=== PATIENT | male | born 1995 | race Caucasian/White ===

== ENCOUNTER 2017-09-26 14:39 | Emergency (ER) | payer MEDICAID ==
[2017-09-26 14:42] VITALS: BP 124/68; PULSE 99; RESP 19; TEMP 98.8; O2SAT 98
--- NOTE | 2017-09-26 15:51 | ED PDOC ---
HPI: CCC, URI, Sore Throat Time Seen by Provider: 09/26/17 14:44 Chief Complaint (Nursing): ENT Problem Chief Complaint (Provider): Vomitting History Per: Patient History/Exam Limitations: no limitations Have you had recent travel within the past 21 days to any of the following countries: [place], [place], [place] or [place]?: No Onset/Duration Of Symptoms: Hrs (x 12) Current Symptoms Are (Timing): Still Present Associated Symptoms: Vomiting Additional Complaint(s): 22 year old male presents to the ED via EMS for evaluation of throat pain and tactile fever since last night. Patient states he has had 5 episodes of non- bloody, non-bilious vomiting since earlier this morning. Patient reports he has pain with swallowing and talking. Patient states he took no medications prior to arrival. Denies cough, sick contacts, abdominal pain, chest pain, recent travel, ear pain, headache, drooling, SOB, and neck pain/stiffness. PMD: None Past Medical History Reviewed: Historical Data, Nursing Documentation, Vital Signs Vital Signs: Last Vital Signs Temp 98.8 F 09/26/17 14:41 Pulse 99 H 09/26/17 14:41 Resp 19 09/26/17 14:41 BP 124/68 09/26/17 14:41 Pulse Ox 98 09/27/17 00:15 - Surgical History Surgical History: No Surg Hx - Family History Family History: States: Unknown Family Hx - Social History Current smoker - smoking cessation education provided: Yes (6 cigarettes per day ) Alcohol: None Drugs: Denies - Home Medications Home Medications: Ambulatory Orders Medication Instructions Recorded Amoxicillin/Clavulanate [Augmentin 1 tab PO BID #20 tab 09/26/17 875 MG-125 MG] Ibuprofen [Motrin Tab] 600 mg PO Q6 #20 tab 09/26/17 Ondansetron ODT [Zofran ODT] 8 mg PO TID PRN #12 odt 09/26/17 - Allergies Allergies/Adverse Reactions: Allergies Allergy/AdvReac Type Severity Reaction Status Date / Time No Known Allergies Allergy Verified 09/26/17 14:40 Review of Systems ROS Statement: Except As Marked, All Systems Reviewed And Found Negative Constitutional: Positive for: Fever ENT: Positive for: Throat Pain Gastrointestinal: Positive for: Vomiting (5 episodes) Physical Exam - Reviewed Nursing Documentation Reviewed: Yes Vital Signs Reviewed: Yes - Physical Exam Comments: GENERAL APPEARANCE: Patient is awake, alert, oriented x 3, in no acute distress. Speaking in full sentences. SKIN: Warm, dry; (-) cyanosis, (-) rash. EYES: (-) conjunctival pallor, (-) scleral icterus, (-) conjunctival hemorrhage. ENMT: Mucous membranes moist. TMs: (-) bulging, (-) erythema. Airway patent: (-) stridor (-) muffled voice (-) drooling. Pharynx: (+) bilateral tonsilar erythema, (+) exudates bilaterally, (+) 3+ hypertrophy; (+) uvula midline. NECK: Supple, FROM (-) tenderness, (-) stiffness, (-) meningismus, (+) anterior cervical lymphadenopathy. CHEST AND RESPIRATORY: (-) accessory muscle use. Lungs: (-) rales, (-) rhonchi, (-) wheezes, (-) rub; breath sounds equal bilaterally. HEART AND CARDIOVASCULAR: (-) irregularity; (-) murmur, (-) gallop, (-) rub. ABDOMEN AND GI: Soft; (-) tenderness, (-) guarding (-) distention EXTREMITIES: (-) deformity NEURO AND PSYCH: Mental status as above; (-) focal findings. Gait steady in ED. - Laboratory Results Result Diagrams: 09/26/17 16:16 09/26/17 16:16 - ECG O2 Sat by Pulse Oximetry: 98 (RA) Pulse Ox Interpretation: Normal Medical Decision Making Medical Decision Making: Clinical Impression: Tonsillitis, vomiting Time: 1508 Plan: -- Throat culture -- Rapid strep -- Decamethasone 10 mg IM -- Toradol 60 mg IM -- Zofran 8 mg PO Time: 1600 Additional episode of vomiting in ED shortly after Zofran was administered. Plan: -- IV access established -- Reglan IVP -- CMP -- CBC -- Lipase -- Sodium Chloride IV 1000mL Rapid Strep: Negative Time: 1728 Re-evaluation: Patient feels improved. PO challenge ordered. Patient remains awake, alert, oriented x 3 and is laying in bed comfortably. On exam, neck is supple, lungs are clear, abdomen is soft and non tender, heart is at regular rate and rhythm. Repeat neuro shows no focal findings. (-) drooling (-) stridor (-) muffled voice. Labs reviewed: Elevated WBC likely to due tonsillitis as patient offers no other symptoms outside of vomiting, which he states is from the swelling of his glands in the back of his throat makes him "gag". 1800 Patient tolerating PO intake without difficulty. Patient treated with Augmentin 875mg PO. On re-evaluation, patient reports improvement of symptoms, denies any nausea or SOB. Neck is supple, lungs CTA, cardiac RRR, abdomen is soft and non-tender, neuro exam shows no focal findings. Diagnostic results d/w the patient in great detail. Dx of tonsillitis, vomiting d/w the patient. Based on history, exam and diagnostic results plan will be for discharge and outpatient follow up. Advised to follow up with primary care physician in 1-2 days without fail. Advised to take medication as prescribed. Return to the emergency room at any time for any new or worsening symptoms. Patient states he fully agrees with and understands discharge instructions. States that he agrees with the plan and disposition. Verbalized and repeated discharge instructions and plan. I have given the patient opportunity to ask any additional questions. Scribe Attestation: Documented by Alden Lopez, acting as a scribe for Mirela Lozada PA-C. Provider Scribe Attestation: All medical record entries made by the Scribe were at my direction and personally dictated by me. I have reviewed the chart and agree that the record accurately reflects my personal performance of the history, physical exam, medical decision making, and the department course for this patient. I have also personally directed, reviewed, and agree with the discharge instructions and disposition. Disposition - Clinical Impression Clinical Impression: Tonsillitis, Throat pain in adult, Vomiting - Patient ED Disposition Is Patient to be Admitted: No Counseled Patient/Family Regarding: Studies Performed, Diagnosis, Need For Followup, Rx Given - Disposition Referrals: [facility] [Outside] Disposition: Routine/Home Disposition Time: 18:31 Condition: STABLE Prescriptions: Amoxicillin/Clavulanate [Augmentin 875 MG-125 MG] 1 tab PO BID #20 tab Ibuprofen [Motrin Tab] 600 mg PO Q6 #20 tab Ondansetron ODT [Zofran ODT] 8 mg PO TID PRN #12 odt PRN Reason: Nausea/Vomiting Instructions: Sore Throat in Adults, Nausea and Vomiting, Adult Forms: [employer] [facility] (Scottish) Print Language: YAKUT - POA Present On Arrival: None Results - Lab Results Lab Results: 09/26/17 09/26/17 09/26/17 16:16 16:16 15:29 WBC 25.3 H RBC 5.65 Hgb 15.9 Hct 47.1 MCV 83.2 MCH 28.1 MCHC 33.7 RDW 13.8 Plt Count 254 MPV 9.4 Neut % (Auto) 87.9 H Lymph % (Auto) 3.9 L [place] % (Auto) 8.0 Eos % (Auto) 0.0 Baso % (Auto) 0.2 Neut # (Auto) 22.2 H Lymph # (Auto) 1.0 [place] # (Auto) 2.0 H Eos # (Auto) 0.0 Baso # (Auto) 0.1 Neutrophils % (Manual) 86 H Band Neutrophils % 4 H Lymphocytes % (Manual) 4 L Monocytes % (Manual) 6 Platelet Estimate Normal Hypochromasia (manual) Slight Microcytosis (manual) Slight Sodium 143 Potassium 3.8 Chloride 99 Carbon Dioxide 28 Anion Gap 20 BUN 15 Creatinine 0.9 Est GFR ( Amer) > 60 Est GFR (Non-Af Amer) > 60 Random Glucose 158 H Calcium 10.3 H Total Bilirubin 0.9 AST 31 ALT 27 Alkaline Phosphatase 90 Total Protein 8.9 H Albumin 4.7 Globulin 4.2 H Albumin/Globulin Ratio 1.1 Lipase 45 Grp A Beta Strep Ag Negative
[2017-09-26] MEDS ORDERED: Sodium Chloride 0.9% 1,000 ML IV SCH (16:00)
[2017-09-26 16:40] LABS: BASO # 0.1 K/uL (0.0-0.2); BASO % 0.2 % (0.0-2.0); HEMOGLOBIN 15.9 g/dL (12.0-18.0); LYMPH % 3.9 % (20.0-40.0); MEAN CELL VOLUME 83.2 fl (80.0-94.0); MEAN CORPUSCULAR HEMOGLOBIN 28.1 pg (27.0-31.0); MEAN CORPUSCULAR HGB CONC 33.7 g/dL (33.0-37.0); MEAN PLATELET VOLUME 9.4 fl (7.2-11.7); NEUT # 22.2 K/uL (1.8-7.0); NEUT % 87.9 % (50.0-75.0); PLATELET COUNT 254 K/uL (130-400); RBC 5.65 Mil/uL (4.40-5.90); RED CELL DISTRIBUTION WIDTH 13.8 % (11.5-14.5); WHITE BLOOD COUNT 25.3 K/uL (4.8-10.8)
[2017-09-26 16:48] LABS: ALB/GLOB RATIO 1.1 (1.0-2.1); ALBUMIN 4.7 g/dL (3.5-5.0); ALT/SGPT 27 U/L (21-72); AST/SGOT 31 U/L (17-59); BLOOD UREA NITROGEN 15 mg/dl (9-20); CALCIUM 10.3 mg/dL (8.4-10.2); GFR AFRICAN-AMERICAN > 60; GFR NON-AFRICAN AMERICAN > 60; LIPASE 45 U/L (23-300)
[2017-09-26] MEDS ORDERED: Amoxicillin-Clav 875-125 mg Tab PO STA (18:37)
[2017-09-26 18:56] LABS: BANDS 4 % (0-2); LYMPHOCYTE 4 % (20-50); MONOCYTE 6 % (0-10); NEUTROPHIL 86 % (42-75); PLATELET ESTIMATE NORMAL (NORMAL); TOTAL CELLS COUNTED 100
[2017-09-26 18:57] LABS: HYPOCHROMIC SLIGHT; MICROCYTOSIS SLIGHT
== END 2017-09-26 19:33 | disposition home or self-care (01) ==
LOC: H.ER 14:39
DX: J03.90 Acute tonsillitis, unspecified (principal)
CPT/HCPCS: 80053; 83690; 85025; 87070; 87430; 96372; 96374; 99283; J1100; J1885; J2765; J7040